=== PATIENT | male | born 1995 | race Caucasian/White ===

== ENCOUNTER 2017-02-03 09:42 | Emergency (ER) | payer SELFPAY ==
--- NOTE | 2017-02-03 10:03 | UC ---
Truncal Trauma HPI - HPI Summary HPI Summary: While at work, in a press a large metal aluminum block flew out at high speed and hit him inthe left flank/trunk. he has pain in abd and with breathing. - History Of Current Complaint Chief Complaint: UCTrauma Stated Complaint: LEFT SIDE RIB SHOULDER INJURY (WC) Time Seen by Provider: 02/03/17 09:53 Hx Obtained From: Patient Onset/Duration: Sudden Onset Onset Of Pain: Immediate Severity Initially: Severe Severity Currently: Severe Mechanism Of Injury: Blunt Trauma, Direct Blow Aggravating Factor(s): Movement, Deep Breathing, Cough Alleviating factor(s): Rest, Shallow Breathing Associated Signs And Symptoms: Positive: Chest Pain. Negative: SOB, Nausea, Vomiting Related History: Occupational Injury - Allergies/Home Medications Allergies/Adverse Reactions: Allergies Allergy/AdvReac Type Severity Reaction Status Date / Time Bee Venom AdvReac Swelling Verified 02/03/17 10:16 PMH/Surg Hx/FS Hx/Imm Hx Previously Healthy: Yes - Surgical History Surgical History: None - Family History Known Family History: Positive: Other - no related trauma family history. - Social History Alcohol Use: Occasionally Substance Use Type: None Smoking Status (MU): Current Every Day Smoker Type: Smokeless Tobacco Amount Used/How Often: once a day - Immunization History Most Recent Tetanus Shot: within last 10 years Review of Systems All Other Systems Reviewed And Are Negative: Yes Physical Exam Triage Information Reviewed: Yes Appearance: No Pain Distress, Well-Nourished, Pain Distress - obvious pain with palpation of the injury. Vital Signs: Initial Vital Signs Temp 98.1 F 02/03/17 09:47 Pulse 80 02/03/17 09:47 Resp 14 02/03/17 09:47 BP 126/72 02/03/17 09:47 Pulse Ox 100 02/03/17 09:47 Vital Signs Reviewed: Yes Eye Exam: Normal ENT Exam: Normal Neck exam: Normal Respiratory Exam: Normal Respiratory: Positive: Lungs clear. Negative: Decreased breath sounds Cardiovascular Exam: Normal Abdomen Description: Positive: Guarding, Other: - luq tenderness.. Negative: Distended Musculoskeletal: Positive: Strength Intact Neurological Exam: Normal Neurological: Positive: Alert Psychological Exam: Normal Skin Exam: Other - abrasion superficial o f the left lateral ribs. Truncal Trauma Course/Dx - Course Course Of Treatment: ct chest/abd neg. no suggestion of rib, pulm, renal, spleen laceration. - Differential Dx/Diagnosis Differential Diagnosis/HQI/PQRI: Abdominal Wall Contusion, Abdominal Wall Abrasion, Cardiac Contusion, Chest Wall Contusion, Chest Wall Abrasion, Hepatic Trauma, Liver Trauma, Spleen Trauma, Pneumothorax, Pulmonary Contusion, Renal Trauma, Rib Fracture, Thoracic, Lumbar Provider Diagnoses: chest contusion. blunt trauma Discharge - Discharge Plan Condition: Good Disposition: HOME Prescriptions: traMADol TAB* [Ultram*] 50 mg PO Q8H PRN #20 tab MDD 3 PRN Reason: Pain Patient Education Materials: Contusion in Adults (ED) Referrals: Ross Aguillon MD [Primary Care Provider] - If Needed
[2017-02-03] MEDS ORDERED: Iohexol 300* (CONTRAST) 10 ML SDV IV ONE ×2 (10:30→11:30)
[2017-02-03] MEDS ORDERED: Ondansetron ODT TAB* 4 MG PO ONE (10:49)
[2017-02-03 11:18] VITALS: BP 132/73
--- NOTE | 2017-02-03 11:50 | RAD ---
HISTORY: Trauma, left-sided chest pain and rib pain COMPARISONS: None TECHNIQUE: Multiple contiguous axial CT scans were obtained of the chest abdomen after the administration of intravenous contrast. Coronal and sagittal multiplanar reformations are submitted for review.. Oral contrast was administered. Delayed images were obtained through the abdomen and pelvis. FINDINGS: CHEST NECK AND THYROID: The lower neck and thyroid are unremarkable. CHEST WALL: There is no lower cervical, axillary, or supraclavicular lymphadenopathy by size criteria. HEART AND PERICARDIUM: The heart is unremarkable. AORTA AND PULMONARY VASCULATURE: The aorta and pulmonary vasculature are normal. MEDIASTINUM: There is no mediastinal lymphadenopathy by size criteria. GOKUL: There is no hilar lymphadenopathy by size criteria. AIRWAY AND ESOPHAGUS: The airway is unremarkable, without endobronchial filling defect. The esophagus is grossly normal. LUNG PARENCHYMA: The lungs are clear. PLEURA: No pleural abnormalities are noted. BONES AND SOFT TISSUES: There is no appreciable displaced rib fracture. A linear defect is noted of anterior chest which is felt to be an artifact of reconstruction ABDOMEN/PELVIS: LIVER: The liver is normal in shape, size, contour, and attenuation. BILE DUCTS: There is no intrahepatic or extrahepatic biliary dilatation. GALLBLADDER: The gallbladder is normal, without pericholecystic inflammatory change. PANCREAS: The pancreas is normal, without mass or ductal dilatation. SPLEEN: Normal in size and appearance. UPPER GI TRACT: Evaluation of the gastrointestinal tract is limited by incomplete gastric distention. The upper GI tract is unremarkable. SMALL BOWEL \T\ MESENTERY: The small bowel is normal in contour, course, and caliber. There is no obstruction or dilatation. COLON: The colon is normal in contour, course, caliber. There is no pericolonic inflammatory change. ADRENALS: Normal bilaterally. KIDNEYS: The kidneys are normal in shape, size, contour, and axis. There is no hydronephrosis or nephrolithiasis. AORTA: The aorta is normal. IVC: Unremarkable LYMPH NODES: There is no lymphadenopathy by size criteria. ABDOMINAL WALL: There is no evidence for abdominal wall hernia. BONES: A Schmorl's node is noted at L4-L5. There is no displaced fracture. OTHER: None IMPRESSION: NO ACUTE CT PATHOLOGY OF THE VISUALIZED CHEST OR ABDOMEN
== END 2017-02-03 12:20 | disposition home or self-care (01) ==
LOC: UCCORT 09:42
DX: S20.219A Contusion of unspecified front wall of thorax, initial encounter (principal); F17.210 Nicotine dependence, cigarettes, uncomplicated; W22.8XXA Striking against or struck by other objects, initial encounter; Z91.030 Bee allergy status
CPT/HCPCS: 71260; 74160; 99203; A9270-GY; G0463; Q9967